=== PATIENT | female | born 1985 | race Caucasian/White ===

== ENCOUNTER 2018-06-28 03:20 | Emergency (ER) | payer OTHER ==
[~2018-06-28] VITALS: Ht 170.2 cm; Wt 104.1 kg
[~2018-06-28 03:20] MED LIST: BUPR1SUB23 UT
[2018-06-28 03:25] VITALS: TEMP 36.9; Ht 170.2 cm; Wt 104.1 kg
--- NOTE | 2018-06-28 03:48 | EMERGENCY ROOM VISIT NOTE ---
History Report prepared by Hari: Heather Molina Under the Supervision of: Dr. Arabella Pabon D.O. First contact with patient: 03:29 Chief Complaint: ABDOMINAL PAIN Stated Complaint: PAIN IN LOWER STOMACH,APPENDIX AREA History of Present Illness The patient is a 33 year old female who presents to the Emergency Room with complaints of worsening abdominal pain starting 2 days ago. The patient states that the pain is in her lower abdomen and she thinks that it may be her appendix. She notes that she "looked that up." She states that the pain is worse with exertion. The patient complains of intermittent nausea. The patient denies diarrhea, sore throat, vomiting, urinary symptoms, and the chance of . She notes that her LNMP was last month. Source of History: patient Onset: 2 days ago Position: abdomen Timing: worsening Modifying Factors (Worsening): exertion Associated Symptoms: + nausea, No sorethroat, No vomiting, No diarrhea, No urinary symptoms Review of Systems See HPI for pertinent positives & negatives. A total of 10 systems reviewed and were otherwise negative. Past Medical & Surgical Medical Problems: (1) Hx of renal calculi (2) Vaginal delivery Surgical Problems: (1) Hx of cholecystectomy Family History Cancer Diabetes mellitus Gallbladder disease Hypertension Social History Smoking Status: Current Every Day Smoker Alcohol Use: none Marital Status: single Housing Status: lives with family Occupation Status: unemployed Current/Historical Medications Scheduled Metoprolol Tartrate (Lopressor) (Lopressor), 50 MG PO BID Scheduled PRN Furosemide (Lasix), 1 TAB PO DAILY PRN for FLUID RETENTION Potassium Chloride (Micro-K Ext Rel), 1 CAP PO DAILY PRN for WHEN TAKES LASIX Allergies Uncoded Allergies: "TANNING OILS" (Allergy, Intermediate, HIVES, 06/28/18) Physical Exam Vital Signs Date Time Temp Pulse Resp B/P (MAP) Pulse Ox O2 Delivery O2 Flow Rate FiO2 06/28/18 05:41 99 18 120/75 98 Room Air 06/28/18 03:25 36.9 106 18 128/88 99 Room Air Physical Exam HEENT: Head - normocephalic and atraumatic Pupils are equal, round, and reactive to light. Extraocular eye muscles are intact, and sclera are anicteric. Nose - moist nasal mucosa without discharge. Mouth - moist buccal mucosa. Oropharynx is nonerythematous and there is no tonsillar exudate or edema noted. Neck: Supple; no JVD, nuchal rigidity, cervical lymphadenopathy. Heart: Regular rate and rhythm. There is a normal S1 and S2 with no murmurs, clicks, or gallops appreciated. Lungs: Clear to auscultation bilaterally with no wheezes, rales, or rhonchi. Abdomen: Soft, pain in the RLQ upon palpation, nondistended, with good bowel sounds. There are no palpable pulsatile masses or hepatosplenomegaly. There is no guarding, rigidity, or rebound noted. Extremities: No evidence of cyanosis or clubbing. There are easily palpable peripheral pulses. Trace pedal edema bilaterally. Skin: warm and dry with good turgor and no rashes. Medical Decision & Procedures ER Provider Diagnostic Interpretation: Radiology results as stated below per my review and the radiologist's interpretation: US APPENDIX: Tubular blind-ending noncompressible structure in the right lower quadrant measures 11 mm with possible appendicolith. Findings raise possibility of appendicitis in the appropriate clinical setting. Radiologist: Helena Hsu MD Study ready at 05:33 and initial results transmitted at 05:42. Laboratory Results 06/28/18 04:49 Red Blood Count 5.01, Mean Corpuscular Volume 87.8, Mean Corpuscular Hemoglobin 30.7, Mean Corpuscular Hemoglobin Concent 35.0, Mean Platelet Volume 10.2, Neutrophils (%) (Auto) 58.9, Lymphocytes (%) (Auto) 31.4, Monocytes (%) (Auto) 8.0, Eosinophils (%) (Auto) 1.2, Basophils (%) (Auto) 0.1, Neutrophils # (Auto) 4.75, Lymphocytes # (Auto) 2.54, Monocytes # (Auto) 0.65, Eosinophils # (Auto) 0.10, Basophils # (Auto) 0.01 06/28/18 04:49 Test 06/28/18 03:30 06/28/18 03:36 06/28/18 04:49 Urine Color YELLOW Urine Appearance CLEAR (CLEAR) Urine pH 5.0 (4.5-7.5) Urine Specific [place] 1.023 (1.000-1.030) Urine Protein NEG (NEG) Urine Glucose (UA) NEG (NEG) Urine Ketones NEG (NEG) Urine Occult Blood NEG (NEG) Urine Nitrite NEG (NEG) Urine Bilirubin NEG (NEG) Urine Urobilinogen NEG (NEG) Urine Leukocyte Esterase NEG (NEG) Urine Test NEG (NEG) White Blood Count 8.08 K/uL (4.8-10.8) Red Blood Count 5.01 M/uL (4.2-5.4) Hemoglobin 15.4 g/dL (12.0-16.0) Hematocrit 44.0 % (37-47) Mean Corpuscular Volume 87.8 fL (80-100) Mean Corpuscular Hemoglobin 30.7 pg (25-34) Mean Corpuscular Hemoglobin Concent 35.0 g/dl (32-36) Platelet Count 219 K/uL (130-400) Mean Platelet Volume 10.2 fL (7.4-10.4) Neutrophils (%) (Auto) 58.9 % Lymphocytes (%) (Auto) 31.4 % Monocytes (%) (Auto) 8.0 % Eosinophils (%) (Auto) 1.2 % Basophils (%) (Auto) 0.1 % Neutrophils # (Auto) 4.75 K/uL (1.4-6.5) Lymphocytes # (Auto) 2.54 K/uL (1.2-3.4) Monocytes # (Auto) 0.65 K/uL (0.11-0.59) Eosinophils # (Auto) 0.10 K/uL (0-0.5) Basophils # (Auto) 0.01 K/uL (0-0.2) RDW Standard Deviation 45.3 fL (36.4-46.3) RDW Coefficient of Variation 14.3 % (11.5-14.5) Immature Granulocyte % (Auto) 0.4 % Immature Granulocyte # (Auto) 0.03 K/uL (0.00-0.02) Anion Gap 5.0 mmol/L (3-11) Est Creatinine Clear Calc Drug Dose 137.3 ml/min Estimated GFR () 126.3 Estimated GFR (Non- 109.0 BUN/Creatinine Ratio 11.3 (10-20) Calcium Level 8.8 mg/dl (8.5-10.1) Laboratory results per my review. ED Course 0331: Past medical records reviewed. The patient was evaluated in room A12B. A complete history and physical exam was performed. Nursing staff had significant difficulty obtaining a IV site or blood work. Génesis Rogers PA-C performed ultrasound-guided peripheral line placement with lab draw. The patient went for an ultrasound of the right lower quadrant to rule out acute appendicitis. 0542: I reevaluated the patient and updated her on her test results thus far. 0546: I reevaluated the patient and updated her on her test results. The patient states that she would like to sign out AMA. She must leave the emergency department by 6 AM in order to retrieve her 7-year-old from his father. The patient will then try to arrange for childcare and come back to the emergency department to have further surgical evaluation for possible appendicitis. 0556: The plan was to leave the line in place, but she confided in the IV Team and ED personnel that she used IV drugs one week ago. The line will be removed. Medical Decision The patient is a 33 year old female who presents to the Emergency Room with complaints of worsening abdominal pain starting 2 days ago. Differential diagnoses include appendicitis, diverticulitis, pyelonephritis, cystitis, ectopic . LABS: Urinalysis negative Urine is negative No leukocytosis Stable H&H Sodium 133 Normal glucose Normal renal function This is a 33-year-old female patient presents to the emergency department with a 24-hour history of right lower quadrant abdominal pain. Her physical exam was concerning for acute appendicitis. She had no fever or leukocytosis. However, on ultrasound, there are findings concerning for appendicitis. I recommended that we discussed the case with surgery but the patient was insistent that she leave immediately to direct support professional her child. I explained to the patient that she runs the risk of a ruptured appendix which could lead to infection and . She signed the appropriate AMA paperwork. I strongly encouraged the patient to return to the emergency department as soon as possible so that she could be evaluated by surgery. Medication Reconcilliation Current Medication List: was personally reviewed by me Blood Pressure Screening Patient's blood pressure: Normal blood pressure Blood pressure disposition: Did not require urgent referral Impression Primary Impression: Appendicitis Scribe Attestation The scribe's documentation has been prepared under my direction and personally reviewed by me in its entirety. I confirm that the note above accurately reflects all work, treatment, procedures, and medical decision making performed by me. Departure Information Dispostion Against Medical Advice Referrals No Doctor, Assigned (PCP) Forms Call Back Authorization, HOME CARE DOCUMENTATION FORM, IMPORTANT VISIT INFORMATION Patient Instructions My [facility] Additional Instructions You are signing out against medical advice. I recommended that you stay for emergent surgical evaluation of acute appendicits. Please return [facility] for surgical eval. Problem Qualifiers Primary Impression: Appendicitis Appendicitis type: acute appendicitis Acute appendicitis type: unspecified acute appendicitis type Qualified Codes: K35.80 - Unspecified acute appendicitis
[2018-06-28] MEDS ORDERED: FRS/40 PO ×2 (03:52)
[2018-06-28] MEDS ORDERED: METO50TA16 PO ×2 (03:52)
[2018-06-28] MEDS ORDERED: POTA10CA28 PO ×2 (03:52)
[2018-06-28 04:59] LABS: BASO % 0.1 %; BASO ABS # 0.01 K/uL (0-0.2); EOS % 1.2 %; HEMOGLOBIN 15.4 g/dL (12.0-16.0); IG# 0.03 K/uL (0.00-0.02); LYMPH % 31.4 %; LYMPH ABS # 2.54 K/uL (1.2-3.4); MEAN CELL VOLUME 87.8 fL (80-100); MEAN CORPUSCULAR HEMOGLOBIN 30.7 pg (25-34); MEAN PLATELET VOLUME 10.2 fL (7.4-10.4); MONO ABS # 0.65 K/uL (0.11-0.59); NEUT % 58.9 %; NEUT ABS # 4.75 K/uL (1.4-6.5); PLATELET COUNT 219 K/uL (130-400); RED CELL DISTRIBUTION WIDTH CV 14.3 % (11.5-14.5); RED CELL DISTRIBUTION WIDTH SD 45.3 fL (36.4-46.3); WHITE BLOOD COUNT 8.08 K/uL (4.8-10.8)
[2018-06-28 05:27] LABS: CALCIUM 8.8 mg/dl (8.5-10.1); CREATININE 0.73 mg/dl (0.60-1.20)
[2018-06-28 05:41] VITALS: BP 120/75; PULSE 99; O2SAT 98
--- NOTE | 2018-06-28 06:38 | DIAGNOSTIC IMAGING REPORT ---
ABDOMEN LIMITED (US) HISTORY: 33 years-old Female eval for appy acute right lower quadrant abdominal pain and tenderness COMPARISON: CT 07/06/2006 TECHNIQUE: Multiple real-time sonographic images of the abdominal right lower quadrant were obtained assessing grayscale appearance and color flow FINDINGS: Study is limited secondary to patient body habitus. There is a tubular, dilated blind-ending noncompressible structure within the abdominal right lower quadrant measuring up to 1.2 cm transversely suggesting a dilated appendix with appendiceal choi measuring up to 2.5 cm. There is a 6 mm appendicolith within the mid appendiceal lumen. Mildly increased echogenicity of the periappendiceal fat without significant hyperemia or drainable fluid collection. No hypoperistaltic bowel identified. No adenopathy. IMPRESSION: Findings suggest acute uncomplicated appendicitis with associated appendicolith. The above report was generated using voice recognition software. It may contain grammatical, syntax or spelling errors. Electronically signed by: Victor Hugo Pérez M.D. 06/28/2018 6:37 AM Dictated Date/Time: 06/28/2018 6:34 AM
[2018-06-29] MEDS ORDERED: BUPR8SUB19 SL ×2 (00:41)
[2018-06-29] MEDS ORDERED: OXYC-57 PO ×2 (07:15)
[2018-06-29] MEDS ORDERED: ONDA4TAB10 SL ×2 (11:14)
== END 2018-06-28 06:03 | disposition left against medical advice (07) ==
LOC: C.EDB 03:21 → C.EDA 06:03
DX: K35.80 Unspecified acute appendicitis (principal); F17.200 Nicotine dependence, unspecified, uncomplicated

== ENCOUNTER 2018-06-29 00:04 | Observation (INO) | payer OTHER ==
[~2018-06-29] VITALS: Ht 170.2 cm; Wt 103.5 kg
[2018-06-29] VITALS (7 sets, daily range): BP systolic 100–114; BP diastolic 66–81; PULSE 76–101; TEMP 36.5–36.9; O2SAT 91–94; Ht 170.2 cm; Wt 103.5 kg
[~2018-06-29 00:04] MED LIST changes: +FRS/40 PO; +METO50TA16 PO; +POTA10CA28 PO
[2018-06-29] MEDS ORDERED: ONDANSETRON INJ 2 MG/ML 2 ML VIAL IV STA (00:23)
[2018-06-29] MEDS ORDERED: SODIUM CHLORIDE 0.9% 1000ML 1,000 ML IV ONE (00:30)
[2018-06-29] MEDS ORDERED: BUPR8SUB19 SL ×2 (00:41)
[2018-06-29 01:00] LABS: BASO % 0.1 %; BASO ABS # 0.01 K/uL (0-0.2); EOS % 0.9 %; EOS ABS # 0.08 K/uL (0-0.5); IG# 0.03 K/uL (0.00-0.02); LYMPH ABS # 1.87 K/uL (1.2-3.4); MEAN CELL VOLUME 87.8 fL (80-100); MEAN CORPUSCULAR HEMOGLOBIN 30.6 pg (25-34); MEAN CORPUSCULAR HGB CONC 34.9 g/dl (32-36); MEAN PLATELET VOLUME 10.1 fL (7.4-10.4); MONO % 7.1 %; NEUT % 69.5 %; NEUT ABS # 5.91 K/uL (1.4-6.5); PLATELET COUNT 283 K/uL (130-400); RED CELL DISTRIBUTION WIDTH CV 14.4 % (11.5-14.5); RED CELL DISTRIBUTION WIDTH SD 45.3 fL (36.4-46.3)
[2018-06-29 01:20] LABS: ALBUMIN 3.8 gm/dl (3.4-5.0); CREATININE 0.73 mg/dl (0.60-1.20); POTASSIUM 3.9 mmol/L (3.5-5.1); TOTAL PROTEIN 7.7 gm/dl (6.4-8.2)
--- NOTE | 2018-06-29 01:31 | Surgery Consultation ---
Consultation Date of Consultation: Jun 29, 2018. Attending Physician: History of Present Illness pt is a 33 year old female who presents with 2 days history RLQ pain with nausea , this is a 2nd times came to ER. pt came to ER 18 hours ago with RLQ pain, pt had U/S study- dx acute appendicitis, pt was recommended to have surgery to do appendectomy, but pt signed AMA left ER for take acre his 7 year old [place]. now pt is still have RLQ pain with nausea, but no vomiting, pt denies fever, no diarrhea, no chest pain, no back pain, pt wants to have surgery done for her acute appendicitis. Past Medical/Surgical History Medical Problems: (1) Appendicitis Status: Acute Family History Cancer Diabetes mellitus Gallbladder disease Hypertension Social History Smoking Status: Current Every Day Smoker Smokeless Tobacco Use: No Alcohol Use: occasionally Drug Use: none Marital Status: single Housing Status: lives with family Occupation Status: unemployed Allergies Uncoded Allergies: "TANNING OILS" (Allergy, Intermediate, HIVES, 06/28/18) Home Medications Scheduled Buprenorphine Hcl (Subutex), 20 MG SL DAILY Metoprolol Tartrate (Lopressor) (Lopressor), 50 MG PO BID Scheduled PRN Furosemide (Lasix), 1 TAB PO DAILY PRN for FLUID RETENTION Potassium Chloride (Micro-K Ext Rel), 1 CAP PO DAILY PRN for WHEN TAKES LASIX Current Inpatient Medications Current Inpatient Medications Medications (Trade) Dose Ordered Sig/Sobeida Route Start Time Stop Time Status Last Admin Dose Admin Sodium Chloride 1,000 ml @ 999 mls/hr Q1H1M ONCE IV 06/29/18 00:30 06/29/18 01:30 06/29/18 01:04 999 MLS/HR Review of Systems Constitutional: No fever, No chills, No sweats, No weight loss, No weakness, No fatigue, No problem reported Eyes: No worsening of vision, No eye pain, No redness, No discharge, No diplopia, No problem reported ENT: No hearing loss, No unusual epistaxis, No nasal symptoms, No sore throat, No tinnitus, No dental problems, No trouble swallowing, No problem reported Respiratory: No cough, No sputum, No wheezing, No shortness of breath, No dyspnea on exertion, No dyspnea at rest, No hemoptysis, No problem reported Cardiovascular: No chest pain, No orthopnea, No PND, No edema, No claudication , No palpitations, No problem reported Abdomen: + pain, + nausea Musculoskeletal: No joint pain, No muscle pain, No swelling, No calf pain, No problem reported Genitourinary - Female: No dysuria, No urinary frequency, No urinary urgency, No urinary incontinence, No urinary retention, No hematuria, No dysmenorrhea, No menorrhagia, No metrorrhagia, No rash, No vaginal bleeding, No vaginal discharge, No vaginal itching, No vulvodynia, No , No problem reported Neurologic: No memory loss, No paralysis, No weakness, No numbness/tingling, No vertigo, No balance problems, No problem reported Psychiatric: No depression symptoms, No anhedonism, No anxiety, No insomnia, No substance abuse, No problem reported Endocrine: No fatigue, No excessive thirst, No excessive urination, No problem reported Hematologic / Lymphatic: No abnormal bleeding/bruising, No clotting problems, No swollen lymph nodes, No night sweats, No problem reported Physical Exam Date Time Temp Pulse Resp B/P (MAP) Pulse Ox O2 Delivery O2 Flow Rate FiO2 06/29/18 00:12 36.8 104 18 121/83 96 Room Air General Appearance: WD/WN, + mild distress Head: normocephalic Eyes: normal inspection ENT: normal ENT inspection Neck: supple, no JVD Respiratory/Chest: chest non-tender, lungs clear, normal breath sounds, no respiratory distress Cardiovascular: regular rate, rhythm, no edema, no gallop, no JVD, no murmur Abdomen/GI: normal bowel sounds, soft, no organomegaly, no pulsatile mass, + tenderness (at RLQ with rebound pain), + guarding Extremities/Musculoskelatal: normal inspection, no calf tenderness, normal capillary refill Neurologic/Psych: alert, normal mood/affect, oriented x 3 Skin: normal color, warm/dry, no rash Laboratory Results Last 24 Hours Test 06/29/18 00:45 06/29/18 01:05 White Blood Count 8.50 K/uL Red Blood Count 4.90 M/uL Hemoglobin 15.0 g/dL Hematocrit 43.0 % Mean Corpuscular Volume 87.8 fL Mean Corpuscular Hemoglobin 30.6 pg Mean Corpuscular Hemoglobin Concent 34.9 g/dl Platelet Count 283 K/uL Mean Platelet Volume 10.1 fL Neutrophils (%) (Auto) 69.5 % Lymphocytes (%) (Auto) 22.0 % Monocytes (%) (Auto) 7.1 % Eosinophils (%) (Auto) 0.9 % Basophils (%) (Auto) 0.1 % Neutrophils # (Auto) 5.91 K/uL Lymphocytes # (Auto) 1.87 K/uL Monocytes # (Auto) 0.60 K/uL Eosinophils # (Auto) 0.08 K/uL Basophils # (Auto) 0.01 K/uL RDW Standard Deviation 45.3 fL RDW Coefficient of Variation 14.4 % Immature Granulocyte % (Auto) 0.4 % Immature Granulocyte # (Auto) 0.03 K/uL Assessment & Plan U/S study( 06/28/2018)-FINDINGS: Study is limited secondary to patient body habitus. There is a tubular, dilated blind-ending noncompressible structure within the abdominal right lower quadrant measuring up to 1.2 cm transversely suggesting a dilated appendix with appendiceal choi measuring up to 2.5 cm. There is a 6 mm appendicolith within the mid appendiceal lumen. Mildly increased echogenicity of the periappendiceal fat without significant hyperemia or drainable fluid collection. No hypoperistaltic bowel identified. No adenopathy. IMPRESSION: Findings suggest acute uncomplicated appendicitis with associated appendicolith. Assessment: pt is a 33 year old female who presents to ER with 2 days history RLQ pain, Plan, I recommend to do laparoscopic appendectomy, possible open, D/W benefits, risks and alternatives of the procedure, the risks - infection, bleeding, abscess, injury bowel, incisional hernia, DVT, , pt understood. she agrees with the surgery, I answered all questions,
[2018-06-29] MEDS ORDERED: CEFOXITIN SOD 2 GM VIAL IV STA (01:41)
--- NOTE | 2018-06-29 01:41 | History & Physical Bridge Note ---
H&P Re-Evaluation Bridge Note: I have examined the patient, reviewed the History & Physical and in the interval since the performance of the History & Physical I have noted the following changes of clinical significance: No changes noted
[2018-06-29] MEDS ORDERED: BACITRACIN OINT 15 GM TUBE ONE (01:58)
[2018-06-29] MEDS ORDERED: LIDOCAINE/EPINEPHRINE 1% 20 ML VIAL ONE (01:59)
[2018-06-29] MEDS ORDERED: BUPIVACAINE 0.5 % 5 MG/1 ML PF 10ML VIAL ONE (01:59)
[2018-06-29] MEDS ORDERED: CEFOXITIN IV 2,000 MG in DEXTROSE 5% 50ML 50 ML IV ONE (02:00)
[2018-06-29] MEDS ORDERED: LIDOCAINE HCL 1% 20 ML VIAL ONE (02:00)
[2018-06-29] MEDS ORDERED: CEFAZOLIN SOD 2000MG/15 ML IV PUSH ONE (02:24)
[2018-06-29] MEDS ORDERED: ROCURONIUM BROMIDE 10 MG/ML 5 ML VIAL ONE (02:34)
[2018-06-29] MEDS ORDERED: LIDOCAINE HCL 2% 2 ML VIAL (20MG/ML) ONE (02:34)
[2018-06-29] MEDS ORDERED: FENTANYL CITRATE INJ 50 MCG/1 ML 2 ML VIAL ONE (02:34)
[2018-06-29] MEDS ORDERED: SUCCINYLCHOLINE CHLORIDE 20 MG/ML 10 ML VIAL IV ONE (02:34)
[2018-06-29] MEDS ORDERED: PROPOFOL IV EMULSION 10 MG/ML 20 ML VIAL ONE (02:34)
[2018-06-29] MEDS ORDERED: MoRPHine SULFATE PF 1 MG/ML 10 ML AMP/VIAL ONE (02:49)
--- NOTE | 2018-06-29 02:49 | EMERGENCY ROOM VISIT NOTE ---
History First contact with patient: 00:16 Chief Complaint: FLANK PAIN Stated Complaint: appendicitis symptoms History of Present Illness The patient is a 33 year old female who presents to the Emergency Room with complaints of persistent right lower quadrant abdominal pain. The patient was seen and evaluated at this facility yesterday where she had an ultrasound diagnostic for acute appendicitis. The patient states that she had to leave the ER from her earlier visit to take care of her 7-year-old child. The patient now returns because of the acute appendicitis. The patient has not had fever or chills. She has not had anything to eat since her discharge AGAINST MEDICAL ADVICE 18 hours ago. The patient is without any new symptoms. She rates her current discomfort a 5/10. Review of Systems More than 10 systems were reviewed and otherwise negative with the exception of history of present illness. Past Medical/Surgical History Medical Problems: (1) Hx of renal calculi (2) Vaginal delivery Surgical Problems: (1) Hx of cholecystectomy Family History Cancer Diabetes mellitus Gallbladder disease Hypertension Social History Smoking Status: Current Every Day Smoker Smokeless Tobacco Use: No Alcohol Use: none Drug Use: none Marital Status: single Housing Status: lives with family Occupation Status: unemployed Current/Historical Medications Scheduled Buprenorphine Hcl (Subutex), 20 MG SL DAILY Metoprolol Tartrate (Lopressor) (Lopressor), 50 MG PO BID Scheduled PRN Furosemide (Lasix), 1 TAB PO DAILY PRN for FLUID RETENTION Potassium Chloride (Micro-K Ext Rel), 1 CAP PO DAILY PRN for WHEN TAKES LASIX Physical Exam Vital Signs Date Time Temp Pulse Resp B/P (MAP) Pulse Ox O2 Delivery O2 Flow Rate FiO2 06/29/18 02:06 90 18 126/80 97 06/29/18 00:12 36.8 104 18 121/83 96 Room Air Physical Exam VITALS: Vitals are noted on the nurse's note and reviewed by myself. Vital signs stable. GENERAL: Well-developed, well-nourished, obese white female, who is in no acute distress and resting comfortably. Patient is cooperative with the examination. HEAD: Normocephalic atraumatic. HEART: Regular rate and rhythm without murmurs gallops or rubs. LUNGS: Clear to auscultation bilaterally without wheezes, rales or rhonchi. No retractions or accessory muscle use. ABDOMEN: Positive normal bowel sounds x 4. Soft with tenderness in the right lower quadrant. There is rebound tenderness. No evidence of peritonitis. MUSCULOSKELETAL: No muscle atrophy, erythema, or edema noted. Full range of motion in all extremities. Medical Decision & Procedures Laboratory Results 06/29/18 00:45 Red Blood Count 4.90, Mean Corpuscular Volume 87.8, Mean Corpuscular Hemoglobin 30.6, Mean Corpuscular Hemoglobin Concent 34.9, Mean Platelet Volume 10.1, Neutrophils (%) (Auto) 69.5, Lymphocytes (%) (Auto) 22.0, Monocytes (%) (Auto) 7.1, Eosinophils (%) (Auto) 0.9, Basophils (%) (Auto) 0.1, Neutrophils # (Auto) 5.91, Lymphocytes # (Auto) 1.87, Monocytes # (Auto) 0.60, Eosinophils # (Auto) 0.08, Basophils # (Auto) 0.01 06/29/18 00:45 Test 06/29/18 00:45 06/29/18 01:05 White Blood Count 8.50 K/uL (4.8-10.8) Red Blood Count 4.90 M/uL (4.2-5.4) Hemoglobin 15.0 g/dL (12.0-16.0) Hematocrit 43.0 % (37-47) Mean Corpuscular Volume 87.8 fL (80-100) Mean Corpuscular Hemoglobin 30.6 pg (25-34) Mean Corpuscular Hemoglobin Concent 34.9 g/dl (32-36) Platelet Count 283 K/uL (130-400) Mean Platelet Volume 10.1 fL (7.4-10.4) Neutrophils (%) (Auto) 69.5 % Lymphocytes (%) (Auto) 22.0 % Monocytes (%) (Auto) 7.1 % Eosinophils (%) (Auto) 0.9 % Basophils (%) (Auto) 0.1 % Neutrophils # (Auto) 5.91 K/uL (1.4-6.5) Lymphocytes # (Auto) 1.87 K/uL (1.2-3.4) Monocytes # (Auto) 0.60 K/uL (0.11-0.59) Eosinophils # (Auto) 0.08 K/uL (0-0.5) Basophils # (Auto) 0.01 K/uL (0-0.2) RDW Standard Deviation 45.3 fL (36.4-46.3) RDW Coefficient of Variation 14.4 % (11.5-14.5) Immature Granulocyte % (Auto) 0.4 % Immature Granulocyte # (Auto) 0.03 K/uL (0.00-0.02) Anion Gap 8.0 mmol/L (3-11) Est Creatinine Clear Calc Drug Dose 136.9 ml/min Estimated GFR () 126.3 Estimated GFR (Non- 109.0 BUN/Creatinine Ratio 9.6 (10-20) Calcium Level 9.0 mg/dl (8.5-10.1) Total Bilirubin 0.8 mg/dl (0.2-1) Aspartate Amino Transf (AST/SGOT) 14 U/L (15-37) Alanine Aminotransferase (ALT/SGPT) 22 U/L (12-78) Alkaline Phosphatase 75 U/L (45-117) Total Protein 7.7 gm/dl (6.4-8.2) Albumin 3.8 gm/dl (3.4-5.0) Globulin 3.9 gm/dl (2.5-4.0) Albumin/Globulin Ratio 1.0 (0.9-2) Urine Color YELLOW Urine Appearance CLOUDY (CLEAR) Urine pH 6.0 (4.5-7.5) Urine Specific [place] 1.014 (1.000-1.030) Urine Protein NEG (NEG) Urine Glucose (UA) NEG (NEG) Urine Ketones NEG (NEG) Urine Occult Blood NEG (NEG) Urine Nitrite NEG (NEG) Urine Bilirubin NEG (NEG) Urine Urobilinogen NEG (NEG) Urine Leukocyte Esterase LARGE (NEG) Urine WBC (Auto) >30 /hpf (0-5) Urine RBC (Auto) 5-10 /hpf (0-4) Urine Hyaline Casts (Auto) 1-5 /lpf (0-5) Urine Epithelial Cells (Auto) >30 /lpf (0-5) Urine Bacteria (Auto) 1+ (NEG) Urine Pathogenic Casts /lpf (0) Urine Test NEG (NEG) Medications Administered Medications (Trade) Dose Ordered Sig/Sobeida Route Start Time Stop Time Status Last Admin Dose Admin Sodium Chloride 1,000 ml @ 999 mls/hr Q1H1M ONCE IV 06/29/18 00:30 8/3/18 01:30 DC 06/29/18 01:04 999 MLS/HR Ondansetron HCl (Zofran Inj) 4 mg NOW STAT IV 06/29/18 00:23 06/29/18 00:25 DC 06/29/18 01:04 4 MG Cefoxitin Sodium 2000 mg/Dextrose 60 ml @ 120 mls/hr ONE ONCE IV 06/29/18 02:00 06/29/18 02:29 DC 06/29/18 01:58 120 MLS/HR ED Course Physical exam and history were performed. Nursing notes, EMR, and Medication List were personally reviewed. Patient appears to have acute appendicitis on ultrasound performed at this facility yesterday. The patient initially left AGAINST MEDICAL ADVICE, and now returns for further medical evaluation. IV access was established and labs are obtained. The patient was hydrated with normal saline. I did discuss the case with Dr. Saab, general surgeon, who did evaluate the patient here in the department. The patient's blood work is as above and was reviewed. She does not have a significantly elevated white blood cell count, gross anemia, bandemia, or significant electrolyte imbalance. The patient remained in stable condition throughout her ER stay. She was transferred to the operating room suite for definitive care. Please see Dr. Saab's dictation for further patient course, plan, and disposition. The chart was completed utilizing [employer] Speech Voice Recognition Software. Grammatical errors, random word insertions, pronoun errors, and incomplete sentences are an occasional consequence of this system due to software limitations, ambient noise, and hardware issues. Any formal questions or concerns about the content, text, or information contained within the body of this dictation should be directly addressed to the provider for clarification. . Medical Decision Differential diagnosis: Etiologies such as appendicitis, diverticulitis, PUD, biliary pathology, UTI, pancreatitis, obstruction, mesenteric ischemia, aortic pathology, infections, inflammatory bowel disease, renal colic, as well as others were entertained. Impression Primary Impression: Appendicitis Departure Information Referrals No Doctor, Assigned (PCP) Patient Instructions My [facility] Problem Qualifiers Primary Impression: Appendicitis Appendicitis type: acute appendicitis Acute appendicitis type: unspecified acute appendicitis type Qualified Codes: K35.80 - Unspecified acute appendicitis
[2018-06-29] MEDS ORDERED: KETOROLAC TROMETHAMINE 30 MG/ML VIAL ONE (03:42)
[2018-06-29] MEDS ORDERED: NEOSTIGMINE METHYLSULFATE 5 MG/5 ML SYR ONE (03:42)
[2018-06-29] MEDS ORDERED: GLYCOPYRROLATE INJ 0.2 MG/ML VIAL ONE (03:42)
[2018-06-29] MEDS ORDERED: ONDANSETRON INJ 2 MG/ML 2 ML VIAL ONE (03:42)
--- NOTE | 2018-06-29 03:52 | [facility] Post Operative Brief Note ---
Immediate Operative Summary Operative Date Jun 29, 2018. Pre-Operative Diagnosis Acute Appendicitis Post-Operative Diagnosis Acute Appendicitis Procedure(s) Performed Laparoscopic Appendectomy Surgeon Dr. Camron Saab [employer] Consultant Surgeon(s) surgical instruments inspector Estimated Blood Loss 10ml Findings Consistent with Post-Op Diagnosis Specimens A. Appendix Drains None Anesthesia Type General Complication(s) none Disposition Accompanied Pt To Recover: yes Disposition: Recovery Room / PACU
[2018-06-29] MEDS ORDERED: ONDANSETRON INJ 2 MG/ML 2 ML VIAL IV PRN ×2 (04:00→04:15)
[2018-06-29] MEDS ORDERED: HYDROmorphone INJ 1 MG/ML SYR IV PRN ×2 (04:00→04:15)
[2018-06-29] MEDS ORDERED: OXYCODONE/ACETAMINOPHEN 5-325 TAB PO PRN (04:00)
[2018-06-29] MEDS ORDERED: ACETAMINOPHEN 325 MG TAB PO PRN (04:00)
[2018-06-29] MEDS ORDERED: FENTANYL CITRATE INJ 50 MCG/1 ML 2 ML VIAL IV PRN (04:15)
[2018-06-29] MEDS ORDERED: PROMETHAZINE HCL INJ 6.25 MG in SODIUM CHLORIDE 0.9% 50ML 50 ML IV PRN (04:15)
[2018-06-29] MEDS ORDERED: EpHEDrine SULFATE INJ 50 MG/ML AMP IV PRN (04:15)
[2018-06-29] MEDS ORDERED: ATROPINE SULFATE 0.1 MG/ML 5ML SYR IV PRN (04:15)
[2018-06-29] MEDS ORDERED: IV FLUIDS COMPLETED PRN (05:15)
--- NOTE | 2018-06-29 05:21 | OPERATIVE REPORT ---
DATE OF OPERATION: 06/29/2018 PREOPERATIVE DIAGNOSIS: Acute appendicitis. POSTOPERATIVE DIAGNOSIS: Acute appendicitis.. PROCEDURE: Laparoscopic appendectomy. SURGEON: Camron Saab MD ANESTHESIA: General. ESTIMATED BLOOD LOSS: About 10 mL FINDINGS: Acute appendicitis. COMPLICATIONS: None. INDICATIONS FOR THE PROCEDURE: This is a 33-year-old female who presented to the ED with 2-day history of right lower quadrant pain. The patient had ultrasound study, diagnosis of acute appendicitis. We decided to take the patient to the OR and do laparoscopic appendectomy, possible open. I did talk to the patient about the benefit and risk, alternate procedure. I indicated the risks may include but not limited such as bleeding, infection, abscess, injury to bowel, DVT, incisional hernia, even . The patient understands that she signed informed consent. She agreed to proceed to procedure. I answered all questions. DETAILS OF PROCEDURE: We brought the patient to the OR and put the patient in the supine position. The patient received SCD on bilateral legs to prevent DVT. Also, the patient received 2 g cefoxitin IV for prophylactic antibiotic. Patient received general anesthesia without difficulty. The abdomen was prepped and draped in routine sterile fashion and also after the anesthesiology and intubation, patient received May catheter insertion. The abdominal wall was prepped and draped in routine sterile fashion. After time out, I injected the local anesthesia by using 0.5% lidocaine mixed with 0.5% Marcaine just above umbilicus. Then I made a small incision just above umbilicus, opened fascia and opened peritoneum under direct vision, put a Junito trocar in, connected to CO2 to create pneumoperitoneum. Flow rate is 6 L per minute. Pressure not more than 14 mmHg. Once we got a nice pneumoperitoneum, we put the camera in, looked around the abdomen showing normal finding on the stomach, small bowel, large bowel, liver; however, the appendix showing significant inflammation and large, diagnosis confirmed acute appendicitis. Then, we put another two 5 mm trocar on the left lower quadrant area. Then we used the grasper to hold the appendix and used a harmonic to take down appendiceal, then i use a 45 mm Endo-STEPH staple, transection on the base of the appendix, rechecked at the staple line intact. No leak. No active bleeding. Then we removed the appendix through the catch bag then we reinserted Junito trocar in, connected to CO2 to create pneumoperitoneum, again looked around the abdomen showing no active bleeding, no leak from the staple line, then we removed all trocar under direct vision. No active bleeding from trocar sites. Pneumoperitoneum was released. I closed the umbilical incision, fascial layer by using #1 Vicryl [id number] x2, closed subcutaneous layer by using 2-0 Vicryl interruptedly, closed skin by using 4-0 Vicryl continuous running and closed another two 5 mm trocar site and skin only by using 4-0 Vicryl. Then we put the dressing on. The patient tolerated the procedure well. All the instrument, needle and sponge count were correct x2 at the end of case. The patient transferred to recovery room in stable condition. The specimen sent to pathology. I attest to the content of the Intraoperative Record and any orders documented therein. Any exceptions are noted below. WILLA
[2018-06-29] MEDS ORDERED: D5W AND 1/2NSS + 20MEQ KCL 1,000 ML IV SCH (05:30)
--- NOTE | 2018-06-29 07:09 | Surgery Progress Note ---
Surgery Progress Note Date of Service Jun 29, 2018. Subjective + feeling well F/U S/P laparoscopic appendectomy POD 4 hours pt is doing fine, less abdominal pain, , good control incision pain with pain medicine.pt denies nausea, no vomiting, she tolerated clear diet. pt wants to go to take care her son. Objective Vital Signs: Date Time Temp Pulse Resp B/P (MAP) Pulse Ox O2 Delivery O2 Flow Rate FiO2 06/29/18 06:40 36.9 101 18 103/69 (80) 91 Room Air 06/29/18 05:40 36.8 94 17 100/66 (77) 92 Room Air 06/29/18 05:13 Room Air 06/29/18 05:12 93 Room Air 06/29/18 05:10 36.8 82 15 101/68 (79) 94 Room Air 06/29/18 04:58 36.5 76 16 113/75 93 Room Air 06/29/18 04:30 78 18 118/73 92 Room Air 06/29/18 04:20 82 18 119/71 93 Room Air 06/29/18 04:10 96 18 117/80 97 Room Air 06/29/18 04:05 94 18 119/74 100 Oxymask 4 06/29/18 04:00 36.9 96 18 118/78 99 Oxymask 8 06/29/18 02:06 90 18 126/80 97 06/29/18 00:12 36.8 104 18 121/83 96 Room Air Head: normocephalic Neck: supple, no JVD Respiratory/Chest: chest non-tender, lungs clear Cardiovascular: regular rate, rhythm, no edema, no gallop, no JVD, no murmur Abdomen: normal bowel sounds, soft, + tenderness (some incision pain, no distended) Incision(s): clean, dry, intact Extremities: normal range of motion, non-tender, normal inspection Laboratory Results: Results Past 24 Hours Test 06/29/18 00:45 06/29/18 01:05 Range/Units White Blood Count 8.50 4.8-10.8 K/uL Red Blood Count 4.90 4.2-5.4 M/uL Hemoglobin 15.0 12.0-16.0 g/dL Hematocrit 43.0 37-47 % Mean Corpuscular Volume 87.8 80-100 fL Mean Corpuscular Hemoglobin 30.6 25-34 pg Mean Corpuscular Hemoglobin Concent 34.9 32-36 g/dl Platelet Count 283 130-400 K/uL Mean Platelet Volume 10.1 7.4-10.4 fL Neutrophils (%) (Auto) 69.5 % Lymphocytes (%) (Auto) 22.0 % Monocytes (%) (Auto) 7.1 % Eosinophils (%) (Auto) 0.9 % Basophils (%) (Auto) 0.1 % Neutrophils # (Auto) 5.91 1.4-6.5 K/uL Lymphocytes # (Auto) 1.87 1.2-3.4 K/uL Monocytes # (Auto) 0.60 0.11-0.59 K/uL Eosinophils # (Auto) 0.08 0-0.5 K/uL Basophils # (Auto) 0.01 0-0.2 K/uL RDW Standard Deviation 45.3 36.4-46.3 fL RDW Coefficient of Variation 14.4 11.5-14.5 % Immature Granulocyte % (Auto) 0.4 % Immature Granulocyte # (Auto) 0.03 0.00-0.02 K/uL Sodium Level 136 136-145 mmol/L Potassium Level 3.9 3.5-5.1 mmol/L Chloride Level 102 98-107 mmol/L Carbon Dioxide Level 26 21-32 mmol/L Anion Gap 8.0 3-11 mmol/L Blood Urea Nitrogen 7 7-18 mg/dl Creatinine 0.73 0.60-1.20 mg/dl Est Creatinine Clear Calc Drug Dose 136.9 ml/min Estimated GFR () 126.3 Estimated GFR (Non- 109.0 BUN/Creatinine Ratio 9.6 10-20 Random Glucose 99 70-99 mg/dl Calcium Level 9.0 8.5-10.1 mg/dl Total Bilirubin 0.8 0.2-1 mg/dl Aspartate Amino Transf (AST/SGOT) 14 15-37 U/L Alanine Aminotransferase (ALT/SGPT) 22 12-78 U/L Alkaline Phosphatase 75 45-117 U/L Total Protein 7.7 6.4-8.2 gm/dl Albumin 3.8 3.4-5.0 gm/dl Globulin 3.9 2.5-4.0 gm/dl Albumin/Globulin Ratio 1.0 0.9-2 Urine Color YELLOW Urine Appearance CLOUDY CLEAR Urine pH 6.0 4.5-7.5 Urine Specific [place] 1.014 1.000-1.030 Urine Protein NEG NEG Urine Glucose (UA) NEG NEG Urine Ketones NEG NEG Urine Occult Blood NEG NEG Urine Nitrite NEG NEG Urine Bilirubin NEG NEG Urine Urobilinogen NEG NEG Urine Leukocyte Esterase LARGE NEG Urine WBC (Auto) >30 0-5 /hpf Urine RBC (Auto) 5-10 0-4 /hpf Urine Hyaline Casts (Auto) 1-5 0-5 /lpf Urine Epithelial Cells (Auto) >30 0-5 /lpf Urine Bacteria (Auto) 1+ NEG Urine Pathogenic Casts 0 /lpf Urine Test NEG NEG Microbiology Results 06/29/18 Urine Culture, Received Pending Assessment & Plan pt is doing fine, full liquid diet then regular diet if she tolerated pt wants to go home the post-op care instruction was given, F/U Dr. Saab in 1-2 weeks, regular diet
[2018-06-29] MEDS ORDERED: OXYC-57 PO ×2 (07:15)
--- NOTE | 2018-06-29 07:18 | Discharge Instructions ---
Discharge Instructions Date of Service Jun 29, 2018. Admission Reason for Admission: Acute Appendicitis Discharge Discharge Diagnosis / Problem: S/P laparoscopic appendectomy Discharge Goals Goal(s): Decrease discomfort, Improve function Activity Recommendations Activity Limitations: per Instructions/Follow-up section Lifting Limitations: no more than 25 pounds Exercise/Sports Limitations: rest today May Resume Sexual Activity: after two weeks Shower/Bathe: may shower/bathe in 3 days Driving or Machine Use: resume 3 days after discharge . Instructions / Follow-Up Instructions / Follow-Up keep the dressing on for 4 days, she can take a shower on 07/03/2018, no heavy lifting > 20 LBS for 4 weeks, no driving while taking pain medicine. follow up Dr. Saab in 1-2 weeks, Current Hospital Diet Patient's current hospital diet: Regular Diet Discharge Diet Recommended Diet: Regular Diet Procedures Procedures Performed: Laparoscopic Appendectomy Pending Studies Studies pending at discharge: no Medical Emergencies . Who to Call and When: Medical Emergencies: If at any time you feel your situation is an emergency, please call 911 immediately. . Non-Emergent Contact Non-Emergency issues call your: Surgeon Call Non-Emergent contact if: you have a fever, temperature is above 100.5, your pain is not controlled, your pain is worsening, wound has increased drainage, wound has increased redness . "Provider Documentation" section prepared by Camron Saab. . [place] Drug Monitoring Program Search Results: no issues identified
[2018-06-29] MEDS ORDERED: ENOXAPARIN 40 MG/0.4 ML SYR SQ SCH (09:00)
[2018-06-29] MEDS ORDERED: CEFTRIAXONE SOD INJ 2,000 MG in DEXTROSE 5% 50ML 50 ML IV SCH (09:00)
[2018-06-29] MEDS ORDERED: ONDA4TAB10 SL ×2 (11:14)
--- NOTE | 2018-06-29 11:54 | DISCHARGE SUMMARY ---
ADMITTING DIAGNOSIS: Acute appendicitis. OPERATION: Laparoscopic appendectomy. SURGEON: Camron Saab MD. HOSPITAL COURSE: This is a 33-year-old female who presented to the ED with a 2-day history of right lower quadrant pain. Patient had an ultrasound diagnosis of acute appendicitis. We took the patient to the OR. We did laparoscopic appendectomy. In the OR, we found patient had acute appendicitis. The patient tolerated the procedure well. After the procedure, the patient was transferred to a regular floor. The patient was doing fine. She tolerated a clear diet, and patient had no nausea, no vomiting, only some incision pain, otherwise the patient was doing fine. Patient will go home today. PHYSICAL EXAMINATION: VITAL SIGNS: Temperature is 36.8, heart rate 94, respiratory rate 17, blood pressure 100/66, and O2 saturation 92% on room air. GENERAL: Patient is alert, awake, oriented x3, in no distress. HEENT: With normal limitation. NEUROLOGIC: Intact. NECK: No JVD. CHEST: Bilateral lung sounds clear. HEART: Normal S1 and S2. No murmur. ABDOMEN: Soft, slight tenderness on the incision, no distension. Bowel sounds positive. EXTREMITIES: No edema. Discharge Instructions: Patient will go home today. I did give patient postop care instructions, patient understood. I will follow up patient in 1-2 weeks.
== END 2018-06-29 11:50 | disposition home or self-care (01) ==
LOC: C.EDB 00:05 → C.MSW 03:57 → ENRESERV 04:26
PROVIDERS: ADMIT Surgery; ATTEND Surgery
DX: K35.80 Unspecified acute appendicitis (principal); Z87.442 Personal history of urinary calculi; F17.200 Nicotine dependence, unspecified, uncomplicated